=== PATIENT | male | born 1985 | race Two or more races ===

== ENCOUNTER 2016-05-08 13:15 | Emergency (ER) | payer OTHER ==
[2016-05-08 13:43] VITALS: BP 187/100
== END 2016-05-08 15:21 | disposition home or self-care (01) ==
LOC: ER 13:20
DX: S42.401A Unspecified fracture of lower end of right humerus, initial encounter for closed fracture (principal); Z76.0 Encounter for issue of repeat prescription; X58.XXXA Exposure to other specified factors, initial encounter; Y93.89 Activity, other specified; Y92.89 Other specified places as the place of occurrence of the external cause; Y99.8 Other external cause status